=== PATIENT | female | born 1970 | race Caucasian/White ===

== ENCOUNTER → 2022-10-08 | Outpatient (CLI) | payer OTHER ==
[~2022-10-08] MED LIST: CARAFATE1 G PO; FIORICET TABLET1 TAB PO; SYNTHROID88 MCG PO; TRICOR145 MG PO; [UNRECOGNIZED DRUG - OTHER]
== END | disposition home or self-care (01) ==
LOC: SONOGRAMA 07:33
PROVIDERS: ATTEND Internal Medicine Gastroenterology
DX: K21.9 Gastro-esophageal reflux disease without esophagitis (principal); R10.13 Epigastric pain